=== PATIENT | male | born 1985 | race Asian ===

== ENCOUNTER 2019-10-04 21:18 | Observation (INO) | payer SELFPAY ==
[2019-10-04] MEDS ORDERED: Ondansetron 4 MG/2 ML SDV IVPUSH ONE (21:39)
[2019-10-04] MEDS: HYDROmorphone 2 MG/ML Syringe IVPUSH ONE ×2 (21:47→22:50)
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
[2019-10-04 22:03] LABS: BLOOD UREA NITROGEN,BUN 18 mg/dL (7.0-18.0); CARBON DIOXIDE,CO2 24.6 mmol/L (21.0-32.0); CHLORIDE,CL 101 mmol/L (98-107); GLUCOSE RANDOM 147 mg/dL (74-106); LIPASE 86 U/L (73-393); POTASSIUM,K 4.1 mmol/L (3.5-5.1); SODIUM,NA 139 mmol/L (136-148)
[2019-10-04] MEDS ORDERED: Iopamidol 755 MG/ML 500 ML Multipack Bottle IVPUSH ONE (22:30)
[2019-10-04] MEDS ORDERED: Sodium Chloride 0.9% 1,000 ML IV ONE (22:31)
[2019-10-04] MEDS ORDERED: HYDROmorphone 1 MG/ML Syringe IVPUSH ONE (22:48)
--- NOTE | 2019-10-04 22:51 | CT ---
INDICATION: upper abdominal pain, nausea, vomiting CT ABDOMEN AND PELVIS WITH CONTRAST TECHNIQUE: Multidetector CT imaging was performed through the abdomen and pelvis following intravenous contrast administration using 100 mL Isovue 370. Coronal and sagittal reconstructions were generated. COMPARISON: None. FINDINGS: Lower chest: Lung bases are clear aside from a small amount of anterior basilar atelectasis bilaterally. Liver: Diffuse fatty infiltration of the liver. Gallbladder and bile ducts: No gallbladder wall thickening or calcified gallstones. No biliary dilation identified. Pancreas: Unremarkable. Spleen: Normal. Adrenals: No nodules or masses. Kidneys, ureters, and urinary bladder: No renal masses or hydronephrosis. No bladder mass or definite wall thickening. Gastrointestinal tract: Normal caliber bowel without wall thickening. Enlarged appendix measuring up to 13 millimeters in diameter with subtle periappendiceal fat stranding, consistent with appendicitis. Vascular structures: Normal for age. Peritoneum: No free air, abscess, or significant free fluid. Lymph nodes: No pathologically enlarged nodes identified. Reproductive organs: No pelvic masses. Bones: Unremarkable aside from a tubular defect in the proximal femur from previous surgical hardware. IMPRESSION: 1. Appendicitis. No evidence of appendiceal perforation or abscess. 2. Nonacute additional findings as detailed above. CORINE GAMBLE MD [facility] Dictated by Etienne Gamble MD @ 10/04/2019 10:49:40 PM Dictated by: Etienne Gamble MD @ 10/04/2019 22:49:54 (Electronically Signed)
[2019-10-04] MEDS ORDERED: Piperacillin/Tazobactam 4.5 GM in Sodium Chloride 0.9% 100 ML IV ONE (22:53)
[2019-10-05] MEDS ORDERED: Sodium Chloride 0.9% 10 ML Syringe FLUSH PRN (00:03)
[2019-10-05] MEDS ORDERED: Sodium Chloride 0.9% 2.5 ML Syringe FLUSH PRN (00:03)
[2019-10-05] MEDS ORDERED: Sodium Chloride 0.9% 10 ML SDV IV PRN (00:03)
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
[2019-10-05] MEDS ORDERED: Lactated Ringers 1,000 ML IV SCH (00:15)
[2019-10-05] MEDS: HYDROmorphone 2 MG/ML Syringe IVPUSH PRN ×3 (01:09→06:16)
[2019-10-05] MEDS: Lactated Ringers 1,000 ML IV SCH ×2 (02:54→08:53)
[2019-10-05] MEDS: Piperacillin/Tazobactam 3.375 GM in Sodium Chloride 0.9% 50 ML IV SCH ×2 (06:06→13:32)
[2019-10-05 06:46] LABS: BLOOD UREA NITROGEN,BUN 14 mg/dL (7.0-18.0); CARBON DIOXIDE,CO2 26.7 mmol/L (21.0-32.0); CHLORIDE,CL 101 mmol/L (98-107); GLUCOSE RANDOM 113 mg/dL (74-106); POTASSIUM,K 3.9 mmol/L (3.5-5.1); SODIUM,NA 139 mmol/L (136-148)
[2019-10-05] MEDS ORDERED: HYDROmorphone 1 MG/ML Syringe IVPUSH PRN (08:00)
[2019-10-05] MEDS ORDERED: Midazolam 1 MG/ML 2 ML SDV ONE (08:41)
[2019-10-05] MEDS ORDERED: Lidocaine 2% 5 ML SDV ONE (08:41)
[2019-10-05] MEDS ORDERED: Propofol 200 MG/20 ML SDV ONE (08:41)
[2019-10-05] MEDS ORDERED: Ondansetron 4 MG/2 ML SDV ONE (08:41)
[2019-10-05] MEDS ORDERED: fentaNYL 250 MCG/5 ML SDV ONE (08:41)
[2019-10-05] MEDS ORDERED: Succinylcholine/Sod PF 100 MG/5 ML SYRINGE IV ONE (08:42)
[2019-10-05] MEDS ORDERED: Rocuronium 100 MG/10 ML Syringe ONE (08:42)
[2019-10-05] MEDS ORDERED: Pantoprazole 40 MG in Sodium Chloride 0.9% 10 ML IV SCH (09:00)
[2019-10-05] MEDS ORDERED: Ketamine 500 mg/10 ML MDV ONE (09:02)
[2019-10-05] MEDS ORDERED: Lactated Ringers 1,000 ML IV ONE (09:09)
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
[2019-10-05] MEDS ORDERED: Bupivacaine 0.5% 30 ML SDV ONE (09:47)
[2019-10-05] MEDS ORDERED: ePHEDrine 50 MG/ML SDV ONE (10:45)
[2019-10-05] MEDS ORDERED: Albuterol 0.083% 2.5 MG/3 ML Neb Soln NEB PRN (11:41)
[2019-10-05] MEDS ORDERED: EPINEPHrine 1:10,000 1 MG/10 ML Syringe IVPUSH PRN (11:41)
[2019-10-05] MEDS ORDERED: fentaNYL 100 MCG/2 ML SDV IVPUSH PRN (11:41)
[2019-10-05] MEDS ORDERED: 50% Dextrose in Water 50 ML Syringe IVPUSH PRN (11:41)
[2019-10-05] MEDS ORDERED: Atropine 0.1 MG/ML 10 ML Syringe IVPUSH PRN ×2 (11:41)
[2019-10-05] MEDS ORDERED: Ketorolac 30 MG/ML SDV ONE (11:41)
[2019-10-05] MEDS ORDERED: Naloxone 0.4 MG/ML Syringe IVPUSH PRN (11:41)
--- NOTE | 2019-10-05 11:55 | PCM.OPNOTE ---
- General Post-Op/Procedure Note Date of Surgery/Procedure: 10/05/19 Operative Procedure(s): Laparoscopic appendectomy Findings: Enlarged and inflamed appendix. No rupture. Pre Op Diagnosis: Acute appendicitis Post-Op Diagnosis: same Anesthesia Technique: General ET Tube Primary Surgeon: Yvette Foster Fluid Replacement, Intraop: 1,000 Output, Urine Amount: 800 EBL in mLs: 10 Condition: Stable Free Text/Narrative:: Intake & Output 10/04/19 10/05/19 10/05/19 22:59 06:59 14:59 Intake Total 1165 50 Output Total 220 Balance 945 50
--- NOTE | 2019-10-05 13:01 | PCM.POSTAN ---
POST ANESTHESIA ASSESSMENT - MENTAL STATUS Mental Status: Alert, Oriented - VITAL SIGNS Vital Signs: Last Vital Signs Temp 36.1 C 10/05/19 11:50 Pulse 77 10/05/19 12:45 Resp 12 10/05/19 12:45 BP 123/69 10/05/19 12:45 Pulse Ox 96 10/05/19 12:45 - RESPIRATORY Respiratory Status: Respiratory Rate WNL, Airway Patent, O2 Saturation Stable - CARDIOVASCULAR CV Status: Pulse Rate WNL, Blood Pressure Stable - GASTROINTESTINAL GI Status: No Symptoms - PAIN Pain Score: 0 - POST OP HYDRATION Hydration Status: Adequate & Stable - OBSERVATIONS Free Text/Narrative:: No anesthesia problems
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
[2019-10-05] MEDS: Acetaminophen/oxyCODONE 325-5 MG Tab PO PRN ×2 (14:06→19:12)
--- NOTE | 2019-10-05 17:44 | PCM.SURGPN ---
- General Info Date of Service: 10/05/19 Date of Surgery/Procedure: 10/05/19 POD#: 0 Functional Status: Reports: Pain Controlled, Tolerating Diet, Ambulating, Urinating - Review of Systems General: Reports: No Symptoms HEENT: Reports: No Symptoms Pulmonary: Reports: No Symptoms Cardiovascular: Reports: No Symptoms Gastrointestinal: Reports: No Symptoms Musculoskeletal: Reports: No Symptoms Skin: Reports: No Symptoms - Patient Data Vitals - Most Recent: Last Vital Signs Temp 36.4 C 10/05/19 17:00 Pulse 79 10/05/19 17:00 Resp 19 10/05/19 17:00 BP 132/75 10/05/19 17:00 Pulse Ox 95 10/05/19 17:00 Weight - Most Recent: 81.783 kg I&O - Last 24 Hours: Intake & Output 10/05/19 10/05/19 10/05/19 06:59 14:59 22:59 Intake Total 1165 2150 Output Total 220 1600 Balance 945 550 Lab Results Last 24 Hrs: Laboratory Results - last 24 hr 10/04/19 10/04/19 10/04/19 Range/Units 21:28 21:28 21:28 WBC 17.89 H (4.0-11.0) K/uL RBC 5.14 (4.50-5.90) M/uL Hgb 15.3 (13.0-17.0) g/dL Hct 44.4 (38.0-50.0) % MCV 86.4 (80.0-98.0) fL MCH 29.8 (27.0-32.0) pg MCHC 34.5 (31.0-37.0) g/dL RDW Std Deviation 39.8 (28.0-62.0) fl RDW Coeff of Mukul 12 (11.0-15.0) % Plt Count 249 (150-400) K/uL MPV 11.10 (7.40-12.00) fL Neut % (Auto) 89.9 H (48.0-80.0) % Lymph % (Auto) 6.0 L (16.0-40.0) % Wilkinson % (Auto) 3.9 (0.0-15.0) % Eos % (Auto) 0.1 (0.0-7.0) % Baso % (Auto) 0.1 (0.0-1.5) % Neut # (Auto) 16.1 H (1.4-5.7) K/uL Lymph # (Auto) 1.1 (0.6-2.4) K/uL Wilkinson # (Auto) 0.7 (0.0-0.8) K/uL Eos # (Auto) 0.0 (0.0-0.7) K/uL Baso # (Auto) 0.0 (0.0-0.1) K/uL Nucleated RBC % /100WBC Nucleated RBCs # K/uL Lactate 2.9 H* (0.20-2.00) mmol/L Sodium 139 (136-148) mmol/L Potassium 4.1 (3.5-5.1) mmol/L Chloride 101 (98-107) mmol/L Carbon Dioxide 24.6 (21.0-32.0) mmol/L BUN 18 (7.0-18.0) mg/dL Creatinine 1.1 (0.8-1.3) mg/dL Est Cr Clr Drug Dosing 80.76 mL/min Estimated GFR (MDRD) > 60.0 ml/min Glucose 147 H (74-106) mg/dL Calcium 9.0 (8.5-10.1) mg/dL Total Bilirubin 0.7 (0.2-1.0) mg/dL AST 43 H (15-37) IU/L ALT 122 H (14-63) IU/L Alkaline Phosphatase 69 (46-116) U/L Total Protein 8.9 H (6.4-8.2) g/dL Albumin 4.6 (3.4-5.0) g/dL Globulin 4.3 H (2.6-4.0) g/dL Albumin/Globulin Ratio 1.1 (0.9-1.6) Lipase 86 (73-393) U/L Urine Color Urine Appearance Urine pH (5.0-8.0) Ur Specific [place] (1.001-1.035) Urine Protein (NEGATIVE) mg/dL Urine Glucose (UA) (NEGATIVE) mg/dL Urine Ketones (NEGATIVE) mg/dL Urine Occult Blood (NEGATIVE) Urine Nitrite (NEGATIVE) Urine Bilirubin (NEGATIVE) Urine Urobilinogen (<2.0) EU/dL Ur Leukocyte Esterase (NEGATIVE) 10/04/19 10/05/19 10/05/19 Range/Units 22:15 06:15 06:15 WBC 19.46 H (4.0-11.0) K/uL RBC 4.88 (4.50-5.90) M/uL Hgb 14.4 (13.0-17.0) g/dL Hct 42.9 (38.0-50.0) % MCV 87.9 (80.0-98.0) fL MCH 29.5 (27.0-32.0) pg MCHC 33.6 (31.0-37.0) g/dL RDW Std Deviation 40.1 (28.0-62.0) fl RDW Coeff of Mukul 13 (11.0-15.0) % Plt Count 254 (150-400) K/uL MPV 10.70 (7.40-12.00) fL Neut % (Auto) 76.8 (48.0-80.0) % Lymph % (Auto) 12.7 L (16.0-40.0) % Wilkinson % (Auto) 10.2 (0.0-15.0) % Eos % (Auto) 0.1 (0.0-7.0) % Baso % (Auto) 0.2 (0.0-1.5) % Neut # (Auto) 15.0 H (1.4-5.7) K/uL Lymph # (Auto) 2.5 H (0.6-2.4) K/uL Wilkinson # (Auto) 2.0 H (0.0-0.8) K/uL Eos # (Auto) 0.0 (0.0-0.7) K/uL Baso # (Auto) 0.0 (0.0-0.1) K/uL Nucleated RBC % 0.0 /100WBC Nucleated RBCs # 0 K/uL Lactate 3.2 H* (0.20-2.00) mmol/L Sodium (136-148) mmol/L Potassium (3.5-5.1) mmol/L Chloride (98-107) mmol/L Carbon Dioxide (21.0-32.0) mmol/L BUN (7.0-18.0) mg/dL Creatinine (0.8-1.3) mg/dL Est Cr Clr Drug Dosing mL/min Estimated GFR (MDRD) ml/min Glucose (74-106) mg/dL Calcium (8.5-10.1) mg/dL Total Bilirubin (0.2-1.0) mg/dL AST (15-37) IU/L ALT (14-63) IU/L Alkaline Phosphatase (46-116) U/L Total Protein (6.4-8.2) g/dL Albumin (3.4-5.0) g/dL Globulin (2.6-4.0) g/dL Albumin/Globulin Ratio (0.9-1.6) Lipase (73-393) U/L Urine Color YELLOW Urine Appearance CLEAR Urine pH 6.0 (5.0-8.0) Ur Specific [place] >= 1.030 (1.001-1.035) Urine Protein NEGATIVE (NEGATIVE) mg/dL Urine Glucose (UA) NEGATIVE (NEGATIVE) mg/dL Urine Ketones NEGATIVE (NEGATIVE) mg/dL Urine Occult Blood NEGATIVE (NEGATIVE) Urine Nitrite NEGATIVE (NEGATIVE) Urine Bilirubin NEGATIVE (NEGATIVE) Urine Urobilinogen 0.2 (<2.0) EU/dL Ur Leukocyte Esterase NEGATIVE (NEGATIVE) 10/05/19 10/05/19 Range/Units 06:15 15:06 WBC (4.0-11.0) K/uL RBC (4.50-5.90) M/uL Hgb (13.0-17.0) g/dL Hct (38.0-50.0) % MCV (80.0-98.0) fL MCH (27.0-32.0) pg MCHC (31.0-37.0) g/dL RDW Std Deviation (28.0-62.0) fl RDW Coeff of Mukul (11.0-15.0) % Plt Count (150-400) K/uL MPV (7.40-12.00) fL Neut % (Auto) (48.0-80.0) % Lymph % (Auto) (16.0-40.0) % Wilkinson % (Auto) (0.0-15.0) % Eos % (Auto) (0.0-7.0) % Baso % (Auto) (0.0-1.5) % Neut # (Auto) (1.4-5.7) K/uL Lymph # (Auto) (0.6-2.4) K/uL Wilkinson # (Auto) (0.0-0.8) K/uL Eos # (Auto) (0.0-0.7) K/uL Baso # (Auto) (0.0-0.1) K/uL Nucleated RBC % /100WBC Nucleated RBCs # K/uL Lactate 1.1 (0.20-2.00) mmol/L Sodium 139 (136-148) mmol/L Potassium 3.9 (3.5-5.1) mmol/L Chloride 101 (98-107) mmol/L Carbon Dioxide 26.7 (21.0-32.0) mmol/L BUN 14 (7.0-18.0) mg/dL Creatinine 1.2 (0.8-1.3) mg/dL Est Cr Clr Drug Dosing 74.03 mL/min Estimated GFR (MDRD) > 60.0 ml/min Glucose 113 H (74-106) mg/dL Calcium 8.6 (8.5-10.1) mg/dL Total Bilirubin 1.2 H (0.2-1.0) mg/dL AST 31 (15-37) IU/L ALT 105 H (14-63) IU/L Alkaline Phosphatase 63 (46-116) U/L Total Protein 8.2 (6.4-8.2) g/dL Albumin 4.1 (3.4-5.0) g/dL Globulin 4.1 H (2.6-4.0) g/dL Albumin/Globulin Ratio 1.0 (0.9-1.6) Lipase (73-393) U/L Urine Color Urine Appearance Urine pH (5.0-8.0) Ur Specific [place] (1.001-1.035) Urine Protein (NEGATIVE) mg/dL Urine Glucose (UA) (NEGATIVE) mg/dL Urine Ketones (NEGATIVE) mg/dL Urine Occult Blood (NEGATIVE) Urine Nitrite (NEGATIVE) Urine Bilirubin (NEGATIVE) Urine Urobilinogen (<2.0) EU/dL Ur Leukocyte Esterase (NEGATIVE) Med Orders - Current: Current Medications Hydromorphone HCl (Dilaudid) 0.5 mg IVPUSH Q1H PRN PRN Reason: Pain (severe 7-10) Lactated Ringer's (Ringers, Lactated) 1,000 mls @ 150 mls/hr IV ASDIRECTED [facility] Last Admin: 10/05/19 08:53 Dose: 150 mls/hr Piperacillin Sod/Tazobactam (Sod 3.375 gm/ Sodium Chloride) 50 mls @ 100 mls/ hr IV Q6H [facility] Last Admin: 10/05/19 13:32 Dose: Not Given Pantoprazole Sodium 40 mg/ (Sodium Chloride) 10 mls @ 300 mls/hr IV DAILY [facility] Last Admin: 10/05/19 08:45 Dose: 300 mls/hr Oxycodone/Acetaminophen (Percocet 325-5 Mg) 2 tab PO Q4H PRN PRN Reason: Pain (moderate 4-6) Last Admin: 10/05/19 14:06 Dose: 2 tab Sodium Chloride (Saline Flush) 10 ml FLUSH ASDIRECTED PRN PRN Reason: Keep Vein Open Sodium Chloride (Saline Flush) 2.5 ml FLUSH ASDIRECTED PRN PRN Reason: Keep Vein Open Sodium Chloride (Normal Saline) 10 ml IV ASDIRECTED PRN PRN Reason: IV Use Discontinued Medications Albuterol (Proventil Neb Soln) 2.5 mg NEB ONETIME PRN PRN Reason: Wheezing Atropine Sulfate (Atropine 0.1 Mg/Ml) 0.5 mg IVPUSH ASDIRECTED PRN PRN Reason: Hypo-perfusion Atropine Sulfate (Atropine 0.1 Mg/Ml) 1 mg IVPUSH ASDIRECTED PRN PRN Reason: Hypo-Perfusion Bupivacaine HCl (Marcaine 0.5%) Confirm Administered Dose 30 ml .ROUTE .STK-MED ONE Stop: 10/05/19 09:48 Dextrose/Water (Dextrose 50% In Water) 50 ml IVPUSH ASDIRECTED PRN PRN Reason: Hypoglycemia Ephedrine Sulfate (Ephedrine Sulfate) Confirm Administered Dose 50 mg .ROUTE .STK-MED ONE Stop: 10/05/19 10:46 Epinephrine HCl (Epinephrine 1:10,000) 1 mg IVPUSH ASDIRECTED PRN PRN Reason: ACLS Guidelines Fentanyl (Sublimaze) Confirm Administered Dose 250 mcg .ROUTE .STK-MED ONE Stop: 10/05/19 08:42 Fentanyl (Sublimaze) 50 mcg IVPUSH Q5M PRN PRN Reason: Pain Hydromorphone HCl (Dilaudid) 1 mg IVPUSH ONETIME ONE Stop: 10/04/19 21:40 Last Admin: 10/04/19 22:50 Dose: 1 mg Hydromorphone HCl (Dilaudid) 1 mg IVPUSH ONETIME ONE Stop: 10/04/19 22:49 Last Admin: 10/04/19 22:51 Dose: Not Given Hydromorphone HCl (Dilaudid) 0.5 mg IVPUSH Q1H PRN PRN Reason: Pain (severe 7-10) Last Admin: 10/05/19 06:16 Dose: 0.5 mg Sodium Chloride (Normal Saline) 1,000 mls @ 1,000 mls/hr IV .Bolus ONE Stop: 10/04/19 23:30 Last Admin: 10/04/19 22:30 Dose: 1,000 mls/hr Piperacillin Sod/Tazobactam (Sod 4.5 gm/ Sodium Chloride) 100 mls @ 100 mls/hr IV ONETIME ONE Stop: 10/04/19 23:52 Last Admin: 10/04/19 23:07 Dose: 100 mls/hr Lactated Ringer's (Ringers, Lactated) 1,000 mls @ 999 mls/hr IV ASDIRECTED MARCO A Last Admin: 10/05/19 00:15 Dose: 999 mls/hr Lactated Ringer's (Ringers, Lactated) 1,000 mls @ 999 mls/hr IV .BOLUS ONE Stop: 10/05/19 10:09 Last Admin: 10/05/19 09:14 Dose: 999 mls/hr Iopamidol (Isovue Multipack-370 (76%)) 100 ml IVPUSH ONETIME ONE Stop: 10/04/19 22:31 Last Admin: 10/04/19 22:30 Dose: 100 ml Ketamine HCl (Ketalar) Confirm Administered Dose 500 mg .ROUTE .STK-MED ONE Stop: 10/05/19 09:03 Ketorolac Tromethamine (Toradol) Confirm Administered Dose 30 mg .ROUTE .STK- MED ONE Stop: 10/05/19 11:42 Lidocaine (Xylocaine-Mpf 2%) Confirm Administered Dose 5 ml .ROUTE .STK-MED ONE Stop: 10/05/19 08:42 Midazolam HCl (Versed 1 Mg/Ml) Confirm Administered Dose 2 mg .ROUTE .STK-MED ONE Stop: 10/05/19 08:42 Naloxone HCl (Narcan) 0.1 mg IVPUSH ASDIRECTED PRN PRN Reason: Respiratory Depression Ondansetron HCl (Zofran) 4 mg IVPUSH ONETIME ONE Stop: 10/04/19 21:40 Last Admin: 10/04/19 21:47 Dose: 4 mg Ondansetron HCl (Zofran) Confirm Administered Dose 4 mg .ROUTE .STK-MED ONE Stop: 10/05/19 08:42 Propofol (Diprivan 20 Ml) Confirm Administered Dose 200 mg .ROUTE .STK-MED ONE Stop: 10/05/19 08:42 Rocuronium [place] (Zemuron) Confirm Administered Dose 100 mg .ROUTE .STK-MED ONE Stop: 10/05/19 08:43 - Exam Wound/Incisions: Healing Well, Drainage (minimal) Lungs: Clear to Auscultation Cardiovascular: Regular Rhythm GI/Abdominal Exam: Soft, Non-Tender, No Distention, No Mass Sepsis Event Note - Evaluation Sepsis Screening Result: No Definite Risk - Focused Exam Vital Signs: Vital Signs Temp Pulse Pulse Resp BP BP Pulse Ox 10/05/19 17:00 36.4 C 79 19 132/75 95 10/05/19 16:00 36.5 C 79 18 120/67 95 10/05/19 15:00 36.6 C 79 18 119/67 94 L 10/05/19 14:30 36.4 C 79 16 118/68 94 L 10/05/19 14:00 36.8 C 73 18 120/64 93 L 10/05/19 13:45 36.7 C 84 19 130/68 98 10/05/19 13:30 36.8 C 76 18 120/64 94 L 10/05/19 13:15 36.5 C 76 16 117/65 94 L 10/05/19 13:00 36.5 C 84 18 125/69 96 10/05/19 12:45 77 12 123/69 96 10/05/19 12:40 75 12 110/56 L 93 L 10/05/19 12:35 81 11 L 95/44 L 99 10/05/19 12:30 77 11 L 113/68 100 10/05/19 12:25 74 11 L 104/69 100 10/05/19 12:20 82 13 111/67 100 10/05/19 12:15 92 15 115/73 100 10/05/19 12:10 73 9 L 108/66 100 10/05/19 12:05 79 8 L 109/62 100 10/05/19 12:00 80 11 L 108/46 L 100 10/05/19 11:55 83 10 L 105/60 100 10/05/19 11:50 36.1 C 82 12 104/61 98 10/05/19 11:41 10/05/19 08:00 36.8 C 84 16 103/58 L 94 L Pulse Ox 10/05/19 17:00 10/05/19 16:00 10/05/19 15:00 10/05/19 14:30 10/05/19 14:00 10/05/19 13:45 10/05/19 13:30 10/05/19 13:15 10/05/19 13:00 10/05/19 12:45 10/05/19 12:40 10/05/19 12:35 10/05/19 12:30 10/05/19 12:25 10/05/19 12:20 10/05/19 12:15 10/05/19 12:10 10/05/19 12:05 10/05/19 12:00 10/05/19 11:55 10/05/19 11:50 10/05/19 11:41 95 10/05/19 08:00 Date Exam was Performed: 10/05/19 Time Exam was Performed: 17:41 - Problem List & Annotations (1) Appendicitis SNOMED Code(s): 80313443 Code(s): K37 - UNSPECIFIED APPENDICITIS Status: Acute Current Visit: Yes - Problem List Review Problem List Initiated/Reviewed/Updated: Yes - My Orders Last 24 Hours: Active Orders 24 hr Category Date Time Status Patient Status [ADT] Routine ADT 10/05/19 00:03 Active Antiembolic Devices [RC] PER UNIT ROUTINE Care 10/05/19 00:05 Active Blood Glucose Check, Bedside [RC] PRN Care 10/05/19 11:41 Active Intake and Output [RC] Q12H Care 10/05/19 00:04 Active Notify Provider Vital Signs [RC] ASDIRECTED Care 10/05/19 11:41 Active Oxygen Therapy [RC] PRN Care 10/05/19 00:03 Active Oxygen Therapy [RC] PRN Care 10/05/19 11:41 Active RT Aerosol Therapy [RC] ASDIRECTED Care 10/05/19 11:41 Active RT Aerosol Therapy [RC] ASDIRECTED Care 10/05/19 11:41 Inactive RT Incentive Spirometry [RC] Q1HWA Care 10/05/19 00:03 Active Up ad Coco [RC] ASDIRECTED Care 10/05/19 00:03 Active Vital Signs [RC] Q4H Care 10/05/19 00:03 Active Vital Signs [RC] Q5M Care 10/05/19 11:41 Active Regular Diet [DIET] Diet 10/05/19 Dinner Active CULTURE BLOOD [BC] Stat Lab 10/04/19 22:55 Received CULTURE BLOOD [BC] Stat Lab 10/04/19 23:06 Received Acetaminophen/oxyCODONE [Percocet 325-5 MG] Med 10/05/19 12:09 Active 2 tab PO Q4H PRN HYDROmorphone [Dilaudid] Med 10/05/19 08:00 Active 0.5 mg IVPUSH Q1H PRN Lactated Ringers [Ringers, Lactated] 1,000 ml Med 10/05/19 00:15 Active IV ASDIRECTED Pantoprazole [ProTONIX IV] 40 mg Med 10/05/19 09:00 Active Sodium Chloride 0.9% [Normal Saline] 10 ml IV DAILY Piperacillin/Tazobactam [Piperacil-Tazobact] 3.375 gm Med 10/05/19 06:00 Active Sodium Chloride 0.9% [Normal Saline] 50 ml IV Q6H Sodium Chloride 0.9% [Normal Saline] Med 10/05/19 00:03 Active 10 ml IV ASDIRECTED PRN Sodium Chloride 0.9% [Saline Flush] Med 10/05/19 00:03 Active 10 ml FLUSH ASDIRECTED PRN Sodium Chloride 0.9% [Saline Flush] Med 10/05/19 00:03 Active 2.5 ml FLUSH ASDIRECTED PRN Blood Culture x2 Reflex Set [OM.PC] Stat Oth 10/04/19 22:54 Ordered Peripheral IV Insertion Adult [OM.PC] Routine Oth 10/05/19 00:03 Ordered Peripheral IV Insertion Adult [OM.PC] Urgent Oth 10/05/19 00:03 Ordered Sequential Compression Device [OM.PC] Routine Oth 10/05/19 00:03 Ordered Resuscitation Status Routine Resus Stat 10/05/19 00:03 Ordered Medication Orders Hydromorphone HCl (Dilaudid) 0.5 mg IVPUSH Q1H PRN PRN Reason: Pain (severe 7-10) Lactated Ringer's (Ringers, Lactated) 1,000 mls @ 150 mls/hr IV ASDIRECTED [facility] Last Admin: 10/05/19 08:53 Dose: 150 mls/hr Infusion: 10/05/19 08:53 Dose: 150 mls/hr Admin: 10/05/19 02:54 Dose: 150 mls/hr Piperacillin Sod/Tazobactam (Sod 3.375 gm/ Sodium Chloride) 50 mls @ 100 mls/ hr IV Q6H [facility] Last Admin: 10/05/19 13:32 Dose: Admin: 10/05/19 06:06 Dose: 100 mls/hr Pantoprazole Sodium 40 mg/ (Sodium Chloride) 10 mls @ 300 mls/hr IV DAILY [facility] Last Admin: 10/05/19 08:45 Dose: 300 mls/hr Oxycodone/Acetaminophen (Percocet 325-5 Mg) 2 tab PO Q4H PRN PRN Reason: Pain (moderate 4-6) Last Admin: 10/05/19 14:06 Dose: 2 tab Sodium Chloride (Saline Flush) 10 ml FLUSH ASDIRECTED PRN PRN Reason: Keep Vein Open Sodium Chloride (Saline Flush) 2.5 ml FLUSH ASDIRECTED PRN PRN Reason: Keep Vein Open Sodium Chloride (Normal Saline) 10 ml IV ASDIRECTED PRN PRN Reason: IV Use - Plan Plan (Free Text/Narrative):: Patient doing extremely well s/p lap appendectomy. Lactate now normal. Tolerating regular diet. Pain controlled. VSS. D/C IVF and IV antibiotics. If no acute events overnight d/c in am.
[2019-10-06] MEDS: Acetaminophen/oxyCODONE 325-5 MG Tab PO PRN ×2 (00:30→06:45)
--- NOTE | 2019-10-06 07:13 | PCM48HPAN ---
Post Anesthesia Note - EVALUATION WITHIN 48HRS OF ANESTHETIC Vital Signs in Normal Range: Yes Patient Participated in Evaluation: Yes Respiratory Function Stable: Yes Airway Patent: Yes Cardiovascular Function Stable: Yes Hydration Status Stable: Yes Pain Control Satisfactory: Yes Nausea and Vomiting Control Satisfactory: Yes Mental Status Recovered: Yes Vital Signs: Last Vital Signs Temp 36.6 C 10/06/19 03:52 Pulse 80 10/06/19 03:52 Resp 17 10/06/19 03:52 BP 112/72 10/06/19 03:52 Pulse Ox 96 10/06/19 03:52
[2019-10-06] MEDS ORDERED: Omeprazole 20 MG Cap.CR PO SCH (07:30)
--- NOTE | 2019-10-06 08:18 | PCM.DCSUM1 ---
Discharge Summary - Hospital Course Free Text/Narrative:: Patient is a 34-year-old male who presented with acute appendicitis. He was tachycardic on arrival with an elevated lactate. He was admitted to the floor for fluid resuscitation and IV antibiotics prior to surgery. 6 hours later however his lactate had gone up slightly and his white count had risen. He was taken for laparoscopic appendectomy. The appendix was grossly inflamed and enlarged but not ruptured. In the postoperative period the patient's pain improved significantly. Several hours after surgery the lactate was drawn and was within normal limits. By the evening the patient was eating a regular diet and his vital signs had improved. There were no acute events overnight. The patient is cleared for discharge. - Discharge Data Discharge Date: 10/06/19 Discharge Disposition: Home, Self-Care 01 Condition: Stable - Referral to Home Health Primary Care Physician: PCP None - Discharge Diagnosis/Problem(s) (1) Appendicitis SNOMED Code(s): 27547053 ICD Code: K37 - UNSPECIFIED APPENDICITIS Status: Acute Current Visit: Yes Qualifiers: Appendicitis type: acute appendicitis Acute appendicitis type: with localized peritonitis Appendicitis gangrene presence: without gangrene Appendicitis perforation presence: without perforation - Patient Summary/Data Operative Procedure(s) Performed: Laparoscopic appendectomy - Patient Instructions Diet: Regular Diet as Tolerated Activity: Rest and Relax Today Driving: Do Not Drive Showering/Bathing: No Showering (until tomorrow), No Tub Bathing/Swimming (for 2 weeks ) Wound/Incision Care: Keep Operative Site/Wound Site Clean and Dry Notify Provider of: Fever, Increased Pain, Swelling and Redness, Drainage, Nausea and/or Vomiting - Discharge Plan *PRESCRIPTION DRUG MONITORING PROGRAM REVIEWED*: Yes *COPY OF PRESCRIPTION DRUG MONITORING REPORT IN PATIENT BARBI: Yes Home Medications: Home Meds . [No Known Home Meds] 10/04/19 [History] Referrals: Yvette Fsoter MD [Physician] - 10/16/19 8:30 am - Discharge Summary/Plan Comment DC Time >30 min.: No - General Info Functional Status: Reports: Pain Controlled, Tolerating Diet, Ambulating, Urinating - Review of Systems General: Reports: No Symptoms HEENT: Reports: No Symptoms Pulmonary: Reports: No Symptoms Cardiovascular: Reports: No Symptoms Gastrointestinal: Reports: No Symptoms Genitourinary: Reports: No Symptoms Musculoskeletal: Reports: No Symptoms - Patient Data Vitals - Most Recent: Last Vital Signs Temp 36.6 C 10/06/19 03:52 Pulse 80 10/06/19 03:52 Resp 17 10/06/19 03:52 BP 112/72 10/06/19 03:52 Pulse Ox 96 10/06/19 03:52 Weight - Most Recent: 81.783 kg I&O - Last 24 hours: Intake & Output 10/05/19 10/06/19 10/06/19 22:59 06:59 14:59 Intake Total 400 500 Output Total 1100 1300 Balance -700 -800 Lab Results - Last 24 hrs: Laboratory Results - last 24 hr 10/05/19 Range/Units 15:06 Lactate 1.1 (0.20-2.00) mmol/L MARA Results - Last 24 hrs: Microbiology 10/04/19 23:06 Aerobic Blood Culture - Preliminary Blood - Venous - Lab Draw NO GROWTH AFTER 1 DAY Anaerobic Blood Culture - Preliminary NO GROWTH AFTER 1 DAY 10/04/19 22:55 Aerobic Blood Culture - Preliminary Blood - Venous NO GROWTH AFTER 1 DAY Anaerobic Blood Culture - Preliminary NO GROWTH AFTER 1 DAY Med Orders - Current: Current Medications Hydromorphone HCl (Dilaudid) 0.5 mg IVPUSH Q1H PRN PRN Reason: Pain (severe 7-10) Omeprazole (Omeprazole) 20 mg PO ACBREAKFAST MARCO A Last Admin: 10/06/19 06:44 Dose: 20 mg Oxycodone/Acetaminophen (Percocet 325-5 Mg) 2 tab PO Q4H PRN PRN Reason: Pain (moderate 4-6) Last Admin: 10/06/19 06:45 Dose: 2 tab Sodium Chloride (Saline Flush) 10 ml FLUSH ASDIRECTED PRN PRN Reason: Keep Vein Open Sodium Chloride (Saline Flush) 2.5 ml FLUSH ASDIRECTED PRN PRN Reason: Keep Vein Open Sodium Chloride (Normal Saline) 10 ml IV ASDIRECTED PRN PRN Reason: IV Use Discontinued Medications Albuterol (Proventil Neb Soln) 2.5 mg NEB ONETIME PRN PRN Reason: Wheezing Atropine Sulfate (Atropine 0.1 Mg/Ml) 0.5 mg IVPUSH ASDIRECTED PRN PRN Reason: Hypo-perfusion Atropine Sulfate (Atropine 0.1 Mg/Ml) 1 mg IVPUSH ASDIRECTED PRN PRN Reason: Hypo-Perfusion Bupivacaine HCl (Marcaine 0.5%) Confirm Administered Dose 30 ml .ROUTE .STK-MED ONE Stop: 10/05/19 09:48 Dextrose/Water (Dextrose 50% In Water) 50 ml IVPUSH ASDIRECTED PRN PRN Reason: Hypoglycemia Ephedrine Sulfate (Ephedrine Sulfate) Confirm Administered Dose 50 mg .ROUTE .STK-MED ONE Stop: 10/05/19 10:46 Epinephrine HCl (Epinephrine 1:10,000) 1 mg IVPUSH ASDIRECTED PRN PRN Reason: ACLS Guidelines Fentanyl (Sublimaze) Confirm Administered Dose 250 mcg .ROUTE .STK-MED ONE Stop: 10/05/19 08:42 Fentanyl (Sublimaze) 50 mcg IVPUSH Q5M PRN PRN Reason: Pain Hydromorphone HCl (Dilaudid) 1 mg IVPUSH ONETIME ONE Stop: 10/04/19 21:40 Last Admin: 10/04/19 22:50 Dose: 1 mg Hydromorphone HCl (Dilaudid) 1 mg IVPUSH ONETIME ONE Stop: 10/04/19 22:49 Last Admin: 10/04/19 22:51 Dose: Not Given Hydromorphone HCl (Dilaudid) 0.5 mg IVPUSH Q1H PRN PRN Reason: Pain (severe 7-10) Last Admin: 10/05/19 06:16 Dose: 0.5 mg Sodium Chloride (Normal Saline) 1,000 mls @ 1,000 mls/hr IV .Bolus ONE Stop: 10/04/19 23:30 Last Admin: 10/04/19 22:30 Dose: 1,000 mls/hr Piperacillin Sod/Tazobactam (Sod 4.5 gm/ Sodium Chloride) 100 mls @ 100 mls/hr IV ONETIME ONE Stop: 10/04/19 23:52 Last Admin: 10/04/19 23:07 Dose: 100 mls/hr Lactated Ringer's (Ringers, Lactated) 1,000 mls @ 999 mls/hr IV ASDIRECTED [facility] Last Admin: 10/05/19 00:15 Dose: 999 mls/hr Lactated Ringer's (Ringers, Lactated) 1,000 mls @ 150 mls/hr IV ASDIRECTED [facility] Last Admin: 10/05/19 08:53 Dose: 150 mls/hr Piperacillin Sod/Tazobactam (Sod 3.375 gm/ Sodium Chloride) 50 mls @ 100 mls/ hr IV Q6H [facility] Last Admin: 10/05/19 13:32 Dose: Not Given Pantoprazole Sodium 40 mg/ (Sodium Chloride) 10 mls @ 300 mls/hr IV DAILY [facility] Last Admin: 10/05/19 08:45 Dose: 300 mls/hr Lactated Ringer's (Ringers, Lactated) 1,000 mls @ 999 mls/hr IV .BOLUS ONE Stop: 10/05/19 10:09 Last Admin: 10/05/19 09:14 Dose: 999 mls/hr Iopamidol (Isovue Multipack-370 (76%)) 100 ml IVPUSH ONETIME ONE Stop: 10/04/19 22:31 Last Admin: 10/04/19 22:30 Dose: 100 ml Ketamine HCl (Ketalar) Confirm Administered Dose 500 mg .ROUTE .STK-MED ONE Stop: 10/05/19 09:03 Ketorolac Tromethamine (Toradol) Confirm Administered Dose 30 mg .ROUTE .STK- MED ONE Stop: 10/05/19 11:42 Lidocaine (Xylocaine-Mpf 2%) Confirm Administered Dose 5 ml .ROUTE .STK-MED ONE Stop: 10/05/19 08:42 Midazolam HCl (Versed 1 Mg/Ml) Confirm Administered Dose 2 mg .ROUTE .STK-MED ONE Stop: 10/05/19 08:42 Naloxone HCl (Narcan) 0.1 mg IVPUSH ASDIRECTED PRN PRN Reason: Respiratory Depression Ondansetron HCl (Zofran) 4 mg IVPUSH ONETIME ONE Stop: 10/04/19 21:40 Last Admin: 10/04/19 21:47 Dose: 4 mg Ondansetron HCl (Zofran) Confirm Administered Dose 4 mg .ROUTE .STK-MED ONE Stop: 10/05/19 08:42 Propofol (Diprivan 20 Ml) Confirm Administered Dose 200 mg .ROUTE .STK-MED ONE Stop: 10/05/19 08:42 Rocuronium [place] (Zemuron) Confirm Administered Dose 100 mg .ROUTE .STK-MED ONE Stop: 10/05/19 08:43 - Exam General: Reports: Alert, Oriented HEENT: Reports: Pupils Equal, Pupils Reactive Lungs: Reports: Clear to Auscultation Cardiovascular: Reports: Regular Rhythm GI/Abdominal Exam: Soft, Non-Tender, No Distention, No Mass Skin: Reports: Warm, Dry, Intact Wound/Incisions: Reports: Drainage (serosnaguinous drainage on dressings )
== END 2019-10-06 10:50 | disposition home or self-care (01) ==
LOC: MW.ED 21:18 → MW.MS 23:09
PROVIDERS: ADMIT Surgery; ATTEND Surgery
DX: K35.30 Acute appendicitis with localized peritonitis, without perforation or gangrene (principal); Z87.891 Personal history of nicotine dependence
CPT/HCPCS: 36415; 44970; 74177; 80053; 81003; 83605; 83690; 85025; 87040; 96361; 96365; 96375; 96376; 99285; A9270; C1776; C9113; J0330; J1170; J1885; J2001; J2250; J2405; J2543; J2704; J3010; J3490; J7030; J7050; J7120; Q9967; 88304; 99284; G0378